=== PATIENT | female | born 1965 | race Caucasian/White ===

== ENCOUNTER → 2016-10-05 | Outpatient (CLI) | payer SELFPAY ==
--- NOTE | 2016-10-05 11:46 | RADIOLOGY REPORT (SQ) ---
EXAM DESCRIPTION: FOOT LEFT COMPLETE COMPLETED DATE/TIME: 10/05/2016 10:37 am REASON FOR STUDY: TOE PAIN M79.676 PAIN IN UNSPECIFIED TOE(S) COMPARISON: None. NUMBER OF VIEWS: Three views. TECHNIQUE: AP, lateral and oblique radiographic images acquired of the left foot. LIMITATIONS: None. FINDINGS: MINERALIZATION: Normal. BONES: There is a plantar calcaneal spur. There is no acute osseous abnormality. JOINTS: No effusions. SOFT TISSUES: No soft tissue swelling. No foreign body. OTHER: No other significant finding. IMPRESSION: Calcaneal spur with no acute abnormality. TECHNICAL DOCUMENTATION: JOB ID: [id number] [employer]- All Rights Reserved
== END ==
LOC: RAD 10:19
PROVIDERS: ATTEND Student in an Organized Health Care Education/Training Program
DX: M79.675 Pain in left toe(s) (principal); M77.32 Calcaneal spur, left foot

== ENCOUNTER → 2016-10-08 | Outpatient (CLI) | payer SELFPAY ==
--- NOTE | 2016-10-08 13:04 | XCELERA REPORT ---
[address] [address] Lower Extremity Arterial Evaluation Name: OBI DELCID Age: 50 yrs Gender: Female : 1965 Patient Status: Outpatient Patient Location: Study Date: 10/08/2016 10:52 AM Procedure: A color flow and duplex scan of the lower extremity arteries was performed bilaterally with velocity and waveform anaylsis. Reason For Study: EDEMA Ordering Physician: JULIA ROBISON Performed By: Radha Patrick Measurements and Calculations Right Left Prox PFA PSV 142.8 77.9 cm/sec Prox SFA PSV 67.8 68.4 cm/sec Mid SFA PSV 64.2 75.1 cm/sec Dist SFA PSV 52.0 48.4 cm/sec Dist Pop A PSV 46.2 62.4 cm/sec Dist MARTY PSV 39.3 63.8 cm/sec Dist GROCERY SPECIALIST PSV 28.2 18.6 cm/sec Right Side Arterial Evaluation Normal velocity and triphasic waveforms noted in the Common Femoral artery. Biphasic with fairly well preserved velocity to the Posterior Tibial artery. Monophasic in the Anterior Tibial artery. 20-49 % stenosis at the Femoral artery. With sequential disease. Ankle Brachial index was not done. Left Side Arterial Evaluation Normal velocity and triphasic waveforms noted in the deep Femoral artery. Biphasic with fairly well preserved velocity in the Common Femoral . Monophasic from the Popliteal to the Infrageniculate vessels. Moderately dampened waveforms, with moderate spectral broadening. 20-49 % stenosis at the Aorta Iliac. With sequential disease. Ankle Brachial index was not done. Critical Findings Called [phone] at 1254. Interpretation Summary Moderate hemodynamically significant lesions in the right lower extremity only, on duplex imaging, at rest. Severe hemodynamically significant lesions in the bilateral lower extremities, on duplex imaging, at rest. : JULIA ROBISON > Sai Gimenez
--- NOTE | 2016-10-08 13:06 | XCELERA REPORT ---
[address] [address] Lower Extremity Venous Evaluation Name: OBI DELCID Age: 50 yrs Gender: Female : 1965 Patient Status: Outpatient Patient Location: Study Date: 10/08/2016 10:31 AM Procedure: Color flow and duplex imaging bilaterally of the veins of the lower extremities as well as the Common Femoral veins. Reason For Study: PAD Ordering Physician: JULIA ROBISON Performed By: Radha Patrick Right Sided Venous Evaluation Normal vessel filling wall to wall, compression and augmentation as well as Colour flow down to the infrageniculate veins. Left Sided Venous Evaluation Normal vessel filling wall to wall, compression and augmentation as well as Colour flow down to the infrageniculate veins. Critical Findings Called [phone] at 1256. Interpretation Summary No duplex evidence of DVT or obstruction in the bilateral lower extremities. : JULIA ROBISON > Sai Gimenez
== END ==
LOC: SP 10:01
PROVIDERS: ATTEND Student in an Organized Health Care Education/Training Program
DX: R60.9 Edema, unspecified (principal)
CPT/HCPCS: 93925; 93970

== ENCOUNTER 2016-10-16 06:38 | Emergency (ER) | payer SELFPAY ==
--- NOTE | 2016-10-16 07:30 | RADIOLOGY REPORT (SQ) ---
EXAM DESCRIPTION: CT HEAD WITHOUT COMPLETED DATE/TIME: 10/16/2016 7:17 am REASON FOR STUDY: numbness right side of head, face, shoulder and ear COMPARISON: None. TECHNIQUE: Axial images acquired through the brain without intravenous contrast. Images reviewed wi th bone, brain and subdural windows. Images stored on PACS. All CT scanners at this facility use dose modulation, iterative reconstruction, and/or weight based d osing when appropriate to reduce radiation dose to as low as reasonably achievable (ALARA). [facility]: Dose Right [facility]: CareDose [facility]: Dose Right [facility]: Teradose 4D [facility]: [email or web address] RADIATION DOSE: Up-to-date CT equipment and radiation dose reduction techniques were employed. CTDIv ol: 64.6 mGy. DLP: 1163 mGy-cm. mGy. LIMITATIONS: None. FINDINGS: VENTRICLES: Normal size and contour. CEREBRUM: No masses. No hemorrhage. No midline shift. Normal bryan/white matter differentiation. N o evidence for acute infarction. CEREBELLUM: No masses. No hemorrhage. No alteration of density. No evidence for acute infarction. EXTRAAXIAL SPACES: No fluid collections. No masses. ORBITS AND GLOBE: No intra- or extraconal masses. Normal contour of globe without masses. CALVARIUM: No fracture. PARANASAL SINUSES: Soft tissue occlusion with high attenuation components of the right maxillary sinu s. Mild asymmetric mucosal prominence of the right eustachian tube. SOFT TISSUES: No mass or hematoma. OTHER: No other significant finding. IMPRESSION: Chronic right maxillary sinusitis with fungal superinfection pattern. No acute intracra nial findings. TECHNICAL DOCUMENTATION: JOB ID: [id number] Quality ID # [id number]: Final reports with documentation of one or more dose reduction techniques (e.g., Au tomated exposure control, adjustment of the mA and/or kV according to patient size, use of iterative reconstruction technique) 2010 [employer]- All Rights Reserved
[2016-10-16] MEDS ORDERED: DOCUSATE SODIUM 100 MG CAPSULE RT_EAR ONE (07:37)
--- NOTE | 2016-10-16 07:43 | ER Document Report ---
ED ENT - General Mode of Arrival: Ambulatory Information source: Patient TRAVEL OUTSIDE OF THE [place] IN LAST 30 DAYS: No - HPI Patient complains to provider of: Ear problem Associated symptoms: Other - See above <EUGENIE ZIEGLER - Last Filed: 10/16/16 07:51> <ADITYA ANGLIN - Last Filed: 10/16/16 08:34> - General Chief Complaint: Ear Pain Stated Complaint: ear pain Notes: Patient is a 50 year old female, with a past medical history including CAD and diabetes, who presents to the emergency department complaining of right ear pain onset 2 weeks ago and worsening. Patient also complains of headache, pain in her right jaw, right shoulder, and right neck, as well as numbness in top of her head radiating down the right side and when pressed patient reports feeling shooting pain like needles. Patient states she told her PCP of the ear pain but nothing was done, she received a left femoral artery stent 6 days ago. Patient was placed on Plavix after the surgery and is still on it. Patient reports she took Amoxicillin for the ear pain because she thought it may be an infection, with no relief. (EUGENIE ZIEGLER) - Related Data Allergies/Adverse Reactions: iodine [Iodine] Allergy (Verified 01/12/16 13:01) swollen Past Medical History - General Information source: Patient - Social History Smoking Status: Current Every Day Smoker Chew tobacco use (# tins/day): - 45 Frequency of alcohol use: None Drug Abuse: None Family History: Reviewed & Not Pertinent Patient has suicidal ideation: No Patient has homicidal ideation: No - Past Medical History Cardiac Medical History: Reports: Hx Coronary Artery Disease, Hx Heart Attack - 2008, Hx Hypercholesterolemia, Hx Hypertension Endocrine Medical History: Reports: Hx Diabetes Mellitus Type 2 Musculoskeltal Medical History: Reports Hx Musculoskeletal Deformity, Reports Hx Musculoskeletal Trauma Psychiatric Medical History: Reports: Hx Attention Deficit Hyperactivity Disorder, Hx Bipolar Disorder Past Surgical History: Reports: Hx Cardiac Catheterization, Hx Coronary Stent, Hx Hysterectomy, Hx Tonsillectomy - Immunizations Immunizations up to date: Yes Hx Diphtheria, Pertussis, Tetanus Vaccination: Yes <EUGENIE ZIEGLER - Last Filed: 10/16/16 07:51> Review of Systems - Review of Systems Constitutional: No symptoms reported EENT: See HPI, Ear pain Cardiovascular: No symptoms reported Respiratory: No symptoms reported Gastrointestinal: No symptoms reported Genitourinary: No symptoms reported Female Genitourinary: No symptoms reported Musculoskeletal: See HPI, Joint pain - shoulder, Neck pain Skin: No symptoms reported Hematologic/Lymphatic: No symptoms reported Neurological/Psychological: See HPI, Headaches, Numbness -: Yes All other systems reviewed and negative <EUGENIE ZIEGLER - Last Filed: 10/16/16 07:51> Physical Exam - Vital signs Interpretation: Normal - General General appearance: Appears well, Alert - HEENT Head: Tenderness - Tenerness to palpation at top of head. Ears: Tragus tenderness, Other - preauricular tenderness to palpation External canal: Other - Dark brown shiny wax blocking most of canal Mouth/Lips: Other - Right upper molars decayed, not tender to percussion Neck: No: Lymphadenopathy - Respiratory Respiratory status: No respiratory distress Chest status: Nontender Breath sounds: Rales, Rhonchi Chest palpation: Normal - Cardiovascular Rhythm: Regular Heart sounds: Normal auscultation Murmur: No - Back Back: Normal, Nontender - Extremities General upper extremity: Normal inspection General lower extremity: Normal inspection - Neurological Neuro grossly intact: Yes Cognition: Normal Orientation: AAOx4 [place] Coma Scale Eye Opening: Spontaneous [place] Coma Scale Verbal: Oriented [place] Coma Scale Motor: Obeys Commands Kaelyn Coma Scale Total: 15 Speech: Normal - Psychological Associated symptoms: Normal affect, Normal mood - Skin Skin Temperature: Warm Skin Moisture: Dry Skin Color: Normal <EUGENIE ZIEGLER - Last Filed: 10/16/16 07:51> Course <EUGENIE ZIEGLER - Last Filed: 10/16/16 07:51> - Laboratory Result Diagrams: 10/16/16 07:55 10/16/16 07:55 - Diagnostic Test Radiology reviewed: Image reviewed, Reports reviewed - CT scan shows opacified right maxillary sinus with characteristics suggestive of fungal infection <ADITYA ANGLIN - Last Filed: 10/16/16 08:34> - Re-evaluation Re-evalutation: 10/16/16 08:26 After the erection patient was removed from the right ear canal, there appears to be a small little white head or pimple-like projection off the anterior wall of the canal. This area is quite tender. (ADITYA ANGLIN) - Vital Signs Vital signs: Temp Pulse Resp BP Pulse Ox 98.1 F 108 H 20 180/99 H 98 10/16/16 06:51 10/16/16 06:51 10/16/16 06:51 10/16/16 06:51 10/16/16 06:51 - Laboratory Laboratory results interpreted by me: 10/16/16 10/16/16 07:55 07:55 WBC 14.8 H Absolute Lymphocytes 5.9 H Glucose 234 H Alkaline Phosphatase 132 H Discharge <EUGENIE ZIEGLER - Last Filed: 10/16/16 07:51> <ADITYA ANGLIN - Last Filed: 10/16/16 08:34> - Discharge Clinical Impression: Right external ear canal pimple, Right maxillary sinusitis, chronic Condition: Stable Disposition: HOME, SELF-CARE Additional Instructions: Your right ear pain appears to be coming from a pimple-like lesion on the anterior wall of the external ear canal. Place 3-4 drops into the right ear canal and place a week, 4 times daily. Take the medications as prescribed. Call [facility] to schedule an appointment in the next few days to evaluate your ear and your maxillary sinus. Prescriptions: Ciprofloxacin HCl [Cipro 500 mg Tablet] 500 mg PO BID #14 tablet Oxycodone HCl/Acetaminophen [Percocet 5-325 mg Tablet] 1 - 2 tab PO ASDIR PRN # 15 tablet PRN Reason: Referrals: JULIA ROBISON DO [Primary Care Provider] - [facility] as [facility]] - Follow up in 3-5 days Scribe Attestation: 10/16/16 08:34 I personally performed the services described in the documentation, reviewed and edited the documentation which was dictated to the scribe in my presence, and it accurately records my words and actions. (ADITYA ANGLIN) Scribe Documentation - Scribe Written by Magnolia:: magnolia Reyes, 10/14/16, 0750 acting as scribe for :: Supriya <EUGENIE ZIEGLER - Last Filed: 10/16/16 07:51>
[2016-10-16 08:02] LABS: ABSOLUTE BASOPHILS # (AUTO) 0.1 10^3/uL (0.0-0.2); ABSOLUTE EOSINOPHILS # (AUTO) 0.2 10^3/uL (0.0-0.6); ABSOLUTE LYMPHOCYTES (AUTO) 5.9 10^3/uL (0.5-4.7); ABSOLUTE NEUT (AUTO) 7.7 10^3/uL (1.7-8.2); BASOPHILS % (AUTO) 0.5 % (0-2); EOSINOPHILS % (AUTO) 1.5 % (0-6); HEMATOCRIT 41.4 % (36.0-47.0); HEMOGLOBIN 13.7 g/dL (12.0-15.5); HGB HCT DIFFERENCE -0.3; LYMPHOCYTES % (AUTO) 39.7 % (13-45); MEAN CORPUSCULAR HEMOGLOBIN 29.8 pg (27.0-33.4); MEAN CORPUSCULAR HGB CONC 33.2 g/dL (32.0-36.0); MEAN CORPUSCULAR VOLUME 90 fl (80-97); MONOCYTES % (AUTO) 6.5 % (3-13); RED BLOOD COUNT 4.61 10^6/uL (3.72-5.28); RED CELL DISTRIBUTION WIDTH 13.1 % (11.5-14.0); SEGMENTED NEUTROPHILS % (AUTO) 51.8 % (42-78); WHITE BLOOD COUNT 14.8 10^3/uL (4.0-10.5)
[2016-10-16 08:16] LABS: ALANINE AMINOTRANSFERASE 36 U/L (9-52); ALBUMIN 3.9 g/dL (3.5-5.0); ALKALINE PHOSPHATASE 132 U/L (38-126); ANION GAP 11 (5-19); ASPARTATE AMINO TRANSFERASE 21 U/L (14-36); BILIRUBIN,DIRECT 0.3 mg/dL (0.0-0.4); BILIRUBIN,TOTAL 0.5 mg/dL (0.2-1.3); BLOOD UREA NITROGEN 7 mg/dL (7-20); CALCIUM 9.3 mg/dL (8.4-10.2); CARBON DIOXIDE 24 mmol/L (22-30); CHLORIDE 106 mmol/L (98-107); CREATININE RESULT 0.57 mg/dL (0.52-1.25); GLUCOSE 234 mg/dL (75-110); SODIUM 141.4 mmol/L (137-145)
[2016-10-16] MEDS ORDERED: NEOMY SULF/POLYMYX B SULF/HC OTIC SUSP 10 ML AD ONE (08:17)
[2016-10-16] MEDS ORDERED: OXYCODONE-ACETAMINOPHEN 5-325 MG TABLET PO ONE (08:18)
[2016-10-16 08:41] VITALS: BP 157/91
== END 2016-10-16 08:41 | disposition home or self-care (01) ==
LOC: ER 06:38
DX: H92.01 Otalgia, right ear (principal); R23.8 Other skin changes; J32.0 Chronic maxillary sinusitis; R51 Headache; R68.84 Jaw pain; M54.2 Cervicalgia; M25.511 Pain in right shoulder; E11.9 Type 2 diabetes mellitus without complications; I25.10 Atherosclerotic heart disease of native coronary artery without angina pectoris; F17.220 Nicotine dependence, chewing tobacco, uncomplicated; Z90.710 Acquired absence of both cervix and uterus
CPT/HCPCS: 99284; 36415; 85025; 80053; 70450; J3490

== ENCOUNTER 2016-11-06 14:34 | Emergency (ER) | payer SELFPAY ==
--- NOTE | 2016-11-06 14:59 | ER Document Report ---
ED Medical Screen (RME) - General Chief Complaint: Numbness Stated Complaint: HEAD NUMBNESS, RIGHT BODY NUMBNESS Time Seen by Provider: 11/06/16 14:57 Mode of Arrival: Ambulatory Information source: Patient TRAVEL OUTSIDE OF THE [place] IN LAST 30 DAYS: No - HPI Patient complains to provider of: SHERMAN, numbness of face, R arm Onset: Other - Pt with several week h/o intermittent SHERMAN with numbness to R side of head and R arm. Denies h/o trauma - Related Data Allergies/Adverse Reactions: iodine [Iodine] Allergy (Verified 01/12/16 13:01) swollen Past Medical History - Past Medical History Cardiac Medical History: Reports: Hx Coronary Artery Disease, Hx Heart Attack - 2008, Hx Hypercholesterolemia, Hx Hypertension Pulmonary Medical History: Denies: Hx Asthma Neurological Medical History: Denies: Hx Cerebrovascular Accident, Hx Seizures Endocrine Medical History: Reports: Hx Diabetes Mellitus Type 2 Renal/ Medical History: Denies: Hx Peritoneal Dialysis GI Medical History: Denies: Hx Hepatitis, Hx Hiatal Hernia, Hx Ulcer Musculoskeltal Medical History: Reports Hx Musculoskeletal Deformity, Reports Hx Musculoskeletal Trauma Psychiatric Medical History: Reports: Hx Attention Deficit Hyperactivity Disorder, Hx Bipolar Disorder Infectious Medical History: Denies: Hx Hepatitis Past Surgical History: Reports: Hx Cardiac Catheterization, Hx Coronary Stent, Hx Hysterectomy, Hx Tonsillectomy. Denies: Hx Mastectomy, Hx Open Heart Surgery , Hx Pacemaker - Immunizations Immunizations up to date: Yes Hx Diphtheria, Pertussis, Tetanus Vaccination: Yes Physical Exam - Vital signs Vitals: Temp Pulse Resp BP Pulse Ox 98.3 F 105 H 20 140/78 H 96 11/06/16 14:40 11/06/16 14:40 11/06/16 14:40 11/06/16 14:40 11/06/16 14:40 Course - Vital Signs Vital signs: Temp Pulse Resp BP Pulse Ox 98.3 F 105 H 20 140/78 H 96 11/06/16 14:40 11/06/16 14:40 11/06/16 14:40 11/06/16 14:40 11/06/16 14:40
[2016-11-06 15:15] LABS: ABSOLUTE BASOPHILS # (AUTO) 0.1 10^3/uL (0.0-0.2); ABSOLUTE EOSINOPHILS # (AUTO) 0.4 10^3/uL (0.0-0.6); ABSOLUTE LYMPHOCYTES (AUTO) 5.5 10^3/uL (0.5-4.7); ABSOLUTE MONOCYTES (AUTO) 0.6 10^3/uL (0.1-1.4); ABSOLUTE NEUT (AUTO) 10.6 10^3/uL (1.7-8.2); BASOPHILS % (AUTO) 0.4 % (0-2); EOSINOPHILS % (AUTO) 2.5 % (0-6); HEMATOCRIT 44.8 % (36.0-47.0); HEMOGLOBIN 15.2 g/dL (12.0-15.5); HGB HCT DIFFERENCE 0.8; LYMPHOCYTES % (AUTO) 31.7 % (13-45); MEAN CORPUSCULAR HEMOGLOBIN 30.5 pg (27.0-33.4); MEAN CORPUSCULAR HGB CONC 33.9 g/dL (32.0-36.0); MEAN CORPUSCULAR VOLUME 90 fl (80-97); MONOCYTES % (AUTO) 3.7 % (3-13); RED BLOOD COUNT 4.98 10^6/uL (3.72-5.28); SEGMENTED NEUTROPHILS % (AUTO) 61.7 % (42-78); WHITE BLOOD COUNT 17.3 10^3/uL (4.0-10.5)
[2016-11-06 15:30] LABS: ALANINE AMINOTRANSFERASE 46 U/L (9-52); ALBUMIN 4.2 g/dL (3.5-5.0); ALKALINE PHOSPHATASE 136 U/L (38-126); ANION GAP 15 (5-19); ASPARTATE AMINO TRANSFERASE 34 U/L (14-36); BILIRUBIN,DIRECT 0.4 mg/dL (0.0-0.4); BILIRUBIN,TOTAL 0.6 mg/dL (0.2-1.3); BLOOD UREA NITROGEN 14 mg/dL (7-20); CALCIUM 10.1 mg/dL (8.4-10.2); CARBON DIOXIDE 22 mmol/L (22-30); CHLORIDE 102 mmol/L (98-107); CREATINE KINASE 33 U/L (30-135); CREATININE RESULT 0.75 mg/dL (0.52-1.25); GLUCOSE 263 mg/dL (75-110); POTASSIUM 4.2 mmol/L (3.6-5.0); SODIUM 139.4 mmol/L (137-145); TOTAL PROTEIN 7.6 g/dL (6.3-8.2)
--- NOTE | 2016-11-06 15:31 | RADIOLOGY REPORT (SQ) ---
EXAM DESCRIPTION: CT HEAD WITHOUT COMPLETED DATE/TIME: 11/06/2016 3:18 pm REASON FOR STUDY: SHERMAN, numbness COMPARISON: 10/16/2016 TECHNIQUE: Axial images acquired through the brain without intravenous contrast. Images reviewed wi th bone, brain and subdural windows. Images stored on PACS. All CT scanners at this facility use dose modulation, iterative reconstruction, and/or weight based d osing when appropriate to reduce radiation dose to as low as reasonably achievable (ALARA). [facility]: Dose Right [facility]: CareDose [facility]: Dose Right [facility]: Teradose 4D [facility]: Smart [address] [address] RADIATION DOSE: Up-to-date CT equipment and radiation dose reduction techniques were employed. CTDIv ol: 63.0 mGy. DLP: 1163 mGy-cm. mGy. LIMITATIONS: None. FINDINGS: VENTRICLES: Normal size and contour. CEREBRUM: No masses. No hemorrhage. No midline shift. Normal bryan/white matter differentiation. N o evidence for acute infarction. CEREBELLUM: No masses. No hemorrhage. No alteration of density. No evidence for acute infarction. EXTRAAXIAL SPACES: No fluid collections. No masses. ORBITS AND GLOBE: No intra- or extraconal masses. Normal contour of globe without masses. CALVARIUM: No fracture. PARANASAL SINUSES: There is persistent opacification and expansion of the right maxillary sinus. A s mall mucous retention cyst is seen in the left maxillary sinus. SOFT TISSUES: No mass or hematoma. OTHER: No other significant finding. IMPRESSION: Persistent maxillary sinus disease with no acute intracranial pathology. TECHNICAL DOCUMENTATION: JOB ID: [id number] Quality ID # [id number]: Final reports with documentation of one or more dose reduction techniques (e.g., Au tomated exposure control, adjustment of the mA and/or kV according to patient size, use of iterative reconstruction technique) 2010 [employer]- All Rights Reserved
--- NOTE | 2016-11-06 15:35 | RADIOLOGY REPORT (SQ) ---
EXAM DESCRIPTION: CT CERVICAL SPINE WITHOUT COMPLETED DATE/TIME: 11/06/2016 3:18 pm REASON FOR STUDY: SHERMAN, numbness COMPARISON: None. TECHNIQUE: Axial images acquired through the cervical spine without intravenous contrast. Images re viewed with lung, soft tissue and bone windows. Reconstructed coronal and sagittal MPR images review ed. Images stored on PACS. All CT scanners at this facility use dose modulation, iterative reconstruction, and/or weight based d osing when appropriate to reduce radiation dose to as low as reasonably achievable (ALARA). [facility]: Dose Right [facility]: CareDose [facility]: Dose Right [facility]: Teradose 4D [facility]: Smart [employer] RADIATION DOSE: Up-to-date CT equipment and radiation dose reduction techniques were employed. CTDIv ol: 21.4 mGy. DLP: 478 mGy-cm. mGy. LIMITATIONS: None. FINDINGS: ALIGNMENT: Anatomic. MINERALIZATION: Normal. VERTEBRAL BODIES: No fractures or dislocation. DISCS: No significant disc disease. FACETS, LATERAL MASSES, POSTERIOR ELEMENTS: No fractures. No dislocation. No acute findings. HARDWARE: None in the spine. VISUALIZED RIBS: No fractures. LUNG APICES AND SOFT TISSUES: No significant or acute findings. OTHER: No other significant finding. IMPRESSION: NO ACUTE OR SIGNIFICANT FINDINGS IN THE CERVICAL SPINE. TECHNICAL DOCUMENTATION: JOB ID: [id number] Quality ID # [id number]: Final reports with documentation of one or more dose reduction techniques (e.g., Au tomated exposure control, adjustment of the mA and/or kV according to patient size, use of iterative reconstruction technique) 2010 [employer] All Rights Reserved
[2016-11-06 15:40] LABS: CREATINE KINASE MB 0.38 ng/mL (<4.55)
[2016-11-06 15:42] LABS: TROPONIN I < 0.012 ng/mL
--- NOTE | 2016-11-06 15:47 | ER Document Report ---
ED Neuro Symptoms/Deficit - General Chief Complaint: Numbness Stated Complaint: HEAD NUMBNESS, RIGHT BODY NUMBNESS Time Seen by Provider: 11/06/16 14:57 Mode of Arrival: Ambulatory Notes: The patient is a 51-year-old female, past medical history hypertension, CAD s/p 2 stents, maxillary sinus disease, diabetes, presents with 3 weeks of intermittent shooting pains on the right side of her head, right shoulder and right arm. When she has these pains, her arm feels numb. She says that air conditioning makes the pain worse. She saw an ENT physician and her primary care physician this week. She tried lidocaine patches, NSAIDs or heating pads without much relief of her symptoms. TRAVEL OUTSIDE OF THE [place] IN LAST 30 DAYS: No - Related Data Allergies/Adverse Reactions: iodine [Iodine] Allergy (Verified 11/06/16 16:11) swollen Past Medical History - General Information source: Patient - Social History Smoking Status: Current Every Day Smoker Chew tobacco use (# tins/day): No Frequency of alcohol use: None Drug Abuse: None Family History: Reviewed & Not Pertinent Patient has suicidal ideation: No Patient has homicidal ideation: No - Past Medical History Cardiac Medical History: Reports: Hx Coronary Artery Disease, Hx Heart Attack - 2008, Hx Hypercholesterolemia, Hx Hypertension Pulmonary Medical History: Denies: Hx Asthma Neurological Medical History: Denies: Hx Cerebrovascular Accident, Hx Seizures Endocrine Medical History: Reports: Hx Diabetes Mellitus Type 2 Renal/ Medical History: Denies: Hx Peritoneal Dialysis GI Medical History: Denies: Hx Hepatitis, Hx Hiatal Hernia, Hx Ulcer Musculoskeltal Medical History: Reports Hx Musculoskeletal Deformity, Reports Hx Musculoskeletal Trauma Psychiatric Medical History: Reports: Hx Attention Deficit Hyperactivity Disorder, Hx Bipolar Disorder Infectious Medical History: Denies: Hx Hepatitis Past Surgical History: Reports: Hx Cardiac Catheterization, Hx Coronary Stent, Hx Hysterectomy, Hx Tonsillectomy. Denies: Hx Mastectomy, Hx Open Heart Surgery , Hx Pacemaker - Immunizations Immunizations up to date: Yes Hx Diphtheria, Pertussis, Tetanus Vaccination: Yes Review of Systems - Review of Systems Notes: REVIEW OF SYSTEMS: CONSTITUTIONAL: -fevers, -chills EENT: -eye pain, -difficulty swallowing, -nasal congestion CARDIOVASCULAR:-chest pain, -syncope. RESPIRATORY: -cough, -SOB GASTROINTESTINAL: -abdominal pain, - nausea, -vomiting, -diarrhea GENITOURINARY: -dysuria, -hematuria MUSCULOSKELETAL: -back pain, +neck pain SKIN: -rash or skin lesions. HEMATOLOGIC: -easy bruising or bleeding. LYMPHATIC: -swollen, enlarged glands. NEUROLOGICAL: -altered mental status or loss of consciousness, -headache, + numbness/tingling on right side of head and arm PSYCHIATRIC: -anxiety, -depression. ALL OTHER SYSTEMS REVIEWED AND NEGATIVE. Physical Exam - Vital signs Vitals: Temp Pulse Resp BP Pulse Ox 98.3 F 105 H 20 140/78 H 96 11/06/16 14:40 11/06/16 14:40 11/06/16 14:40 11/06/16 14:40 11/06/16 14:40 - Notes Notes: PHYSICAL EXAMINATION: GENERAL: Well-appearing, well-nourished and in no acute distress. HEAD: Atraumatic, normocephalic. EYES: Pupils equal round and reactive to light, extraocular movements intact, sclera anicteric, conjunctiva are normal. ENT: nares patent, oropharynx clear without exudates. Moist mucous membranes. NECK: Normal range of motion, supple without lymphadenopathy LUNGS: Breath sounds clear to auscultation bilaterally and equal. No wheezes rales or rhonchi. HEART: Regular rate and rhythm without murmurs ABDOMEN: Soft, nontender, normoactive bowel sounds. No guarding, no rebound. No masses appreciated. EXTREMITIES: Normal range of motion, no pitting or edema. No cyanosis. Strong distal pulses. NEUROLOGICAL: Tingling of right side of head, right shoulder and right arm. Cranial nerves grossly intact. Normal speech, normal gait. Normal motor exams. PSYCH: Normal mood, normal affect. SKIN: Warm, Dry, normal turgor, no rashes or lesions noted. Course - Re-evaluation Re-evalutation: Patient appears well. Her head CT and C-spine CT did not show any acute abnormalities. Considered CVA, but symptoms are more indicative of a radiculopathy with worsening tingling with movement of her neck and shoulders. Patient has a 32 ounce cup of soda in her room. Instructed her that with her diabetes, this is probably not a good idea. Labs are unremarkable, other than the hyperglycemia and leukocytosis. No signs of infection at this time and no fever to explain the leukocytosis. This may be reactive. Instructed patient that she must follow-up with her primary care physician tomorrow for further evaluation and treatment. Given strict return precautions and she understands. - Vital Signs Vital signs: Temp Pulse Resp BP Pulse Ox 98.3 F 99 18 138/88 H 98 11/06/16 14:40 11/06/16 17:06 11/06/16 17:06 11/06/16 17:06 11/06/16 17:06 - Laboratory Result Diagrams: 11/06/16 15:00 11/06/16 15:00 Laboratory results interpreted by me: 11/06/16 11/06/16 15:00 15:00 WBC 17.3 H Absolute Neutrophils 10.6 H Absolute Lymphocytes 5.5 H Glucose 263 H Alkaline Phosphatase 136 H - Diagnostic Test Radiology reviewed: Image reviewed, Reports reviewed Radiology results interpreted by me: CT Head/C-spine: NAD - EKG Interpretation by Me EKG shows normal: Sinus rhythm, Newberg, Intervals, QRS Complexes, ST-T Waves Discharge - Discharge Clinical Impression: Radicular neuropathy Condition: Stable Disposition: HOME, SELF-CARE Additional Instructions: Radiculopathy Radiculopathy is irritation of a nerve. Sometimes this is called "pinched nerve." The pain can be sharp and stabbing, constant and dull, or burning in nature. The pain can occur in any area of the chest, shoulders, or arms. Sometimes the pain is provoked by coughing or moving. Radiculopathy can be caused by physical pressure on a nerve, such as a herniated disc or swollen joint in the spine. It can also be caused by viral infections within the nerve or by nerve damage due to diabetes or blood vessel disease. Radicular pain is treated with antiinflammatory medicine. Injections may help resistant cases, if we can identify a single nerve that's causing the pain. Surgery is usually not necessary. If symptoms do not improve with time, you may need additional testing, such as an MRI or EMG (electromyogram). Return if there is local weakness or numbness, shortness of breath, increasing pain, or other new symptoms. Neuropathy Your symptoms are due to neuropathy. Neuropathy is nerve damage. There are many causes, including diabetes, immune disease, alcohol, blood vessel disease, and vitamin deficiency. The usual symptoms are pain and numbness. Neuropathy can occur anywhere, but it's most likely in the "longest" nerves. That's why the feet are most often affected. Sometimes the nerve damage can heal. But if the symptoms have lasted more than a few months, the damage is permanent. To avoid further damage, treat your underlying health problems carefully. If you have diabetes, keep the blood sugar as normal as possible. Avoid alcohol. Treat high blood pressure and high cholesterol. Treating chronic pain can be a problem. Obviously, you don't want to become addicted to pain medicine. Work closely with your doctor on pain management. Your options include antiinflammatory medicine, anti seizure medicine, antidepressants, and pain clinic management. Contact the doctor if there is a significant change. Prescriptions: Gabapentin [Neurontin 100 mg Capsule] 100 mg PO Q12 #14 capsule Hydrocodone/Acetaminophen [Breda 5-325 mg Tablet] 1 tab PO Q6H PRN #10 tablet PRN Reason: Referrals: JULIA ROBISON DO [Primary Care Provider] - Follow up as needed OLGA LIDIA SMITH MD [ACTIVE STAFF] - Follow up as needed
[2016-11-06 17:08] VITALS: BP 138/88
--- NOTE | 2016-11-06 20:18 | EKG REPORT ---
SEVERITY:- BORDERLINE ECG - SINUS RHYTHM BORDERLINE T ABNORMALITIES, ANT-LAT LEADS BORDERLINE PROLONGED QT INTERVAL : Confirmed by: Gerard Romero MD 06-Nov-2016 20:17:56
== END 2016-11-06 17:06 | disposition home or self-care (01) ==
LOC: ER 14:34
DX: M54.10 Radiculopathy, site unspecified (principal); M25.511 Pain in right shoulder; M79.601 Pain in right arm; R20.0 Anesthesia of skin; F17.200 Nicotine dependence, unspecified, uncomplicated; I10 Essential (primary) hypertension; I25.10 Atherosclerotic heart disease of native coronary artery without angina pectoris; E78.00 Pure hypercholesterolemia, unspecified; E11.9 Type 2 diabetes mellitus without complications; I25.2 Old myocardial infarction; Z90.710 Acquired absence of both cervix and uterus
CPT/HCPCS: 36415; 70450; 72125; 80053; 82550; 82553; 84484; 85025; 93005; 93010; 99284

== ENCOUNTER → 2016-11-20 | Outpatient (CLI) | payer SELFPAY ==
--- NOTE | 2016-11-21 16:57 | XCELERA REPORT ---
[address] [address] Upper Extremity Arterial Evaluation Name: OBI DELCID Age: 51 yrs Gender: Female : 1965 Patient Status: Outpatient Patient Location: Study Date: 11/20/2016 12:19 PM Procedure: A duplex scan of the upper extremity arteries was performed on the right. Reason For Study: RUE PAIN, NUMBNESS Ordering Physician: JULIA ROBISON Performed By: Bianka Iyer Measurements and Calculations Right Left Prox SCLA PSV -113.6 cm/sec Ax A PSV 86.6 cm/sec Prox Brach A PSV 94.8 cm/sec Dist Brach A PSV 94.8 cm/sec Prox Rad A PSV -71.9 cm/sec Dist Rad A PSV 88.8 cm/sec Prox Ulnar A PSV 35.4 cm/sec Dist Ulnar A PSV 82.9 cm/sec Ax A PSV 86.6 cm/sec Dist Brach A PSV 94.8 cm/sec Dist Rad A PSV 88.8 cm/sec Dist Ulnar A PSV 82.9 cm/sec Prox Brach A PSV 94.8 cm/sec Prox Rad A PSV -71.9 cm/sec Prox Ulnar A PSV 35.4 cm/sec Right Side Arterial Evaluation Normal velocity and triphasic waveforms noted from the Common Femoral artery to the foreartm vessels. 0 % stenosis noted. Interpretation Summary No hemodynamically significant lesions in the right upper extremity only, on duplex imaging, at rest. : JULIA ROBISON, Sai >
== END ==
LOC: SP 12:05
PROVIDERS: ATTEND Student in an Organized Health Care Education/Training Program
DX: I74.2 Embolism and thrombosis of arteries of the upper extremities (principal); R20.0 Anesthesia of skin
CPT/HCPCS: 93931

== ENCOUNTER 2018-03-07 02:35 | Emergency (ER) | payer SELFPAY ==
[2018-03-07] MEDS ORDERED: IPRATROPIUM/ALBUTEROL 0.5-2.5 MG/3 ML AMPUL NEB ONE ×2 (03:36→04:41)
--- NOTE | 2018-03-07 03:44 | ER Document Report ---
ED General - General Chief Complaint: Painful Cough Stated Complaint: SHORT OF BREATH, COUGH, CONGESTION Time Seen by Provider: 03/07/18 03:34 Notes: Patient is a 52-year-old female who presents emergency department with a cough and shortness of breath. She states that it is hard to breathe and coughing hurts her chest. She has been having fevers. Denies nausea at this moment, but has vomited the other day. She said this started 3 days ago and she has been coughing up thick mucus which is slightly blood-tinged. She has been having diarrhea, a little more than normal, but she states that her diarrhea is chronic. She is a current every day smoker. denies alcohol and drug abuse. She has history of diabetes and hypertension. TRAVEL OUTSIDE OF THE [place] IN LAST 30 DAYS: No - Related Data Allergies/Adverse Reactions: iodine [Iodine] Allergy (Verified 01/03/18 18:06) swollen Past Medical History - Social History Smoking Status: Current Every Day Smoker Smoking Education Provided: Yes - > 4 min Frequency of alcohol use: None Drug Abuse: None Family History: Reviewed & Not Pertinent - Past Medical History Cardiac Medical History: Reports: Hx Coronary Artery Disease, Hx Heart Attack - 2008, Hx Hypercholesterolemia, Hx Hypertension Pulmonary Medical History: Denies: Hx Asthma Neurological Medical History: Denies: Hx Cerebrovascular Accident, Hx Seizures Endocrine Medical History: Reports: Hx Diabetes Mellitus Type 2 Renal/ Medical History: Denies: Hx Peritoneal Dialysis GI Medical History: Denies: Hx Hepatitis, Hx Hiatal Hernia, Hx Ulcer Musculoskeletal Medical History: Reports Hx Musculoskeletal Deformity, Reports Hx Musculoskeletal Trauma Psychiatric Medical History: Reports: Hx Attention Deficit Hyperactivity Disorder, Hx Bipolar Disorder Infectious Medical History: Denies: Hx Hepatitis Past Surgical History: Reports: Hx Cardiac Catheterization - stent x 2, Hx Coronary Stent, Hx Hysterectomy, Hx Tonsillectomy. Denies: Hx Mastectomy, Hx Open Heart Surgery, Hx Pacemaker - Immunizations Immunizations up to date: Yes Hx Diphtheria, Pertussis, Tetanus Vaccination: Yes Review of Systems - Review of Systems Notes: REVIEW OF SYSTEMS: CONSTITUTIONAL : Denies recent illness. Denies recent unintentional weight loss. Denies fever, chills, or sweats. EENT: See HPI CARDIOVASCULAR: Denies chest pain. RESPIRATORY: See HPI GASTROINTESTINAL: See HPI. denies abdominal pain. Denies constipation. GENITOURINARY: Denies difficulty urinating, burning, blood in urine, urgency or frequency. MUSCULOSKELETAL: Denies neck and back pain. Denies joint pain or swelling. SKIN: Denies rash, itchiness, or lesions HEMATOLOGIC : Denies easy bruising or bleeding. LYMPHATIC: Denies swollen, painful, enlarged glands. NEUROLOGICAL: Denies no numbness or tingling denies weakness. Denies headache. Denies altered mental status. Denies alteration in speech. PSYCHIATRIC: Denies stress, anxiety, alteration in sleep patterns, or depression. All other systems reviewed and negative. Physical Exam - Vital signs Vitals: Temp Pulse Resp BP Pulse Ox 97.9 F 92 18 151/76 H 94 03/07/18 03:11 03/07/18 03:11 03/07/18 03:11 03/07/18 03:11 03/07/18 03:11 - Notes Notes: PHYSICAL EXAMINATION: GENERAL: Appears well, healthy, well-nourished, no acute distress. HEAD: Normocephalic, atraumatic. EYES: PERRL, conjunctiva normal, all extraocular movements intact, sclera nonicteric ENT: Erythema and edema noted to bilateral tympanic membranes. moist mucous membranes. NECK: Supple, no noticeable swelling, redness, rash. Normal range of motion. LUNGS: Equal breath sounds bilaterally and clear to auscultation. No wheezes rales or rhonchi. CARDIOVASCULAR: S1-S2, regular rate, regular rhythm. Radial pulses 2+, normal. ABDOMEN: Normoactive bowel sounds. Soft, nontender, no guarding, no rebound tenderness, and no masses palpated. EXTREMITIES: Normal strength and range of motion, no pitting or edema. No cyanosis. NEUROLOGICAL: Moves all extremities upon command. Strength 5/5 in all extremities. PSYCH: Normal mood, normal affect. SKIN: Warm, dry. No rash, lesions, ulcerations noted. Normal skin turgor. Course - Re-evaluation Re-evalutation: 03/07/18 03:50 On physical exam patient is expiratory wheezes throughout her lung delong. She will be ordered a DuoNeb to help with her breathing. Labs will be ordered along with a chest x-ray to rule out pneumonia. She will be placed on a monitoring analyst. I do not suspect she has a pneumothorax, pulmonary embolism, or any life-threatening etiologies at this time. 03/07/18 04:42 Patient's laboratory studies are unremarkable. Her chest x-ray is normal. I assessed her ears and noticed she had erythema to bilateral tympanic membranes. Likely cause of her fever is acute otitis media. I will give her 1 gram of Tylenol. Her lung sounds have improved, but she also continues to have slight expiratory wheezes, another DuoNeb will be ordered. She will be started on amoxicillin. 03/07/18 05:30 Patient states that she feels better after her second breathing treatment. Her lungs are clear throughout. Verbal discharge instructions were given at bedside. She states understanding and will be discharged home. Her vital signs are stable and appears better. - Vital Signs Vital signs: Temp Pulse Resp BP Pulse Ox 97.9 F 92 12 114/71 96 03/07/18 03:11 03/07/18 03:11 03/07/18 05:01 03/07/18 05:00 03/07/18 05:01 - Laboratory Result Diagrams: 03/07/18 03:57 03/07/18 03:57 Laboratory results interpreted by me: 03/07/18 03/07/18 03:57 03:57 WBC 12.0 H Seg Neutrophils % 40.0 L Lymphocytes % 47.4 H Absolute Lymphocytes 5.7 H Chloride 109 H Glucose 119 H AST 37 H Discharge - Discharge Clinical Impression: Cough Acute otitis media Qualifiers: Otitis media type: suppurative Laterality: bilateral Recurrence: not specified as recurrent Spontaneous tympanic membrane rupture: without spontaneous rupture Qualified Code(s): H66.003 - Acute suppurative otitis media without spontaneous rupture of ear drum, bilateral Condition: Stable Disposition: HOME, SELF-CARE Additional Instructions: Otitis Media You have a middle ear infection (otitis media). This is usually a complication of a cold or sore throat. The middle ear cavity becomes filled with infection. Pressure and stretching of the ear drum cause pain. Antibiotics are required. Please take them as prescribed. A follow-up exam may be recommended to make sure the infection has completely cleared. If the ear begins to drain, it means the ear drum has ruptured. This will usually heal spontaneously. However, it means you should keep the ear dry until re-examined by a doctor. Call the physician or return for examination at once if there is severe headache, stiff neck, confusion, increasing fever, or dizziness. You should improve significantly within two days. If you're not better, call the doctor. May take Tylenol 1000 mg and Motrin every 6 hours as needed for the pain and fever. You have also been prescribed Tessalon Perles. Please take them as needed for your cough. Prescriptions: Benzonatate [Tessalon Perles 100 mg Capsule] 100 mg PO Q8HP PRN #40 capsule PRN Reason: Azithromycin [Zithromax 250 mg Tablet] 250 mg PO DAILY #4 tablet Referrals: JULIA ROBISON, [Primary Care Provider] - Follow up as needed
--- NOTE | 2018-03-07 04:22 | RADIOLOGY REPORT (SQ) ---
EXAM DESCRIPTION: XR CHEST 1 VIEW COMPLETED DATE/TME: 03/07/2018 03:34 CLINICAL HISTORY: 52 years Female, cough; congestion; fever COMPARISON: None. NUMBER OF VIEWS/TECHNIQUE: 1/AP FINDINGS: Adequate lung volume, small subsegmental atelectasis or scar of the left midlung field, normal cardiac silhouette, and intact bony thorax. IMPRESSION: No acute cardiopulmonary findings.
[2018-03-07 04:24] LABS: ABSOLUTE BASOPHILS # (AUTO) 0.1 10^3/uL (0.0-0.2); ABSOLUTE EOSINOPHILS # (AUTO) 0.4 10^3/uL (0.0-0.6); ABSOLUTE LYMPHOCYTES (AUTO) 5.7 10^3/uL (0.5-4.7); ABSOLUTE NEUT (AUTO) 4.8 10^3/uL (1.7-8.2); BASOPHILS % (AUTO) 0.7 % (0-2); EOSINOPHILS % (AUTO) 3.3 % (0-6); HEMATOCRIT 39.7 % (36.0-47.0); HEMOGLOBIN 13.7 g/dL (12.0-15.5); LYMPHOCYTES % (AUTO) 47.4 % (13-45); MEAN CORPUSCULAR HEMOGLOBIN 30.5 pg (27.0-33.4); MEAN CORPUSCULAR HGB CONC 34.6 g/dL (32.0-36.0); MEAN CORPUSCULAR VOLUME 88 fl (80-97); MONOCYTES % (AUTO) 8.6 % (3-13); PLATELET COUNT 331 10^3/uL (150-450); RED CELL DISTRIBUTION WIDTH 12.8 % (11.5-14.0); TOTAL CELLS COUNTED % (AUTO) 100 %
[2018-03-07 04:30] LABS: A TYPE INFLUENZA AG NEGATIVE (NEGATIVE); B INFLUENZA AG NEGATIVE (NEGATIVE)
[2018-03-07] MEDS ORDERED: ACETAMINOPHEN 325 MG TABLET PO ONE (04:40)
[2018-03-07 04:42] LABS: ALANINE AMINOTRANSFERASE 43 U/L (9-52); ALBUMIN 3.8 g/dL (3.5-5.0); ALKALINE PHOSPHATASE 108 U/L (38-126); ANION GAP 13 (5-19); ASPARTATE AMINO TRANSFERASE 37 U/L (14-36); BILIRUBIN,DIRECT 0.4 mg/dL (0.0-0.4); BILIRUBIN,TOTAL 0.4 mg/dL (0.2-1.3); BLOOD UREA NITROGEN 8 mg/dL (7-20); CALCIUM 9.5 mg/dL (8.4-10.2); CARBON DIOXIDE 22 mmol/L (22-30); CHLORIDE 109 mmol/L (98-107); GLUCOSE 119 mg/dL (75-110); POTASSIUM 3.9 mmol/L (3.6-5.0); SODIUM 144.1 mmol/L (137-145); TOTAL PROTEIN 6.9 g/dL (6.3-8.2)
[2018-03-07] MEDS ORDERED: DEXAMETHASONE SOD PHOS INJ 10 MG/1 ML VIAL IV ONE (04:57)
[2018-03-07] MEDS ORDERED: AZITHROMYCIN 250 MG TABLET PO ONE (04:58)
[2018-03-07 05:16] VITALS: BP 114/71
== END 2018-03-07 06:20 | disposition home or self-care (01) ==
LOC: ER 02:35
DX: H66.003 Acute suppurative otitis media without spontaneous rupture of ear drum, bilateral (principal); R05 Cough; R06.02 Shortness of breath; R09.81 Nasal congestion; F17.200 Nicotine dependence, unspecified, uncomplicated; I25.10 Atherosclerotic heart disease of native coronary artery without angina pectoris; I10 Essential (primary) hypertension; E11.9 Type 2 diabetes mellitus without complications
CPT/HCPCS: 99406; 94640 ×2; 99284; 96374; 36415; 85025; 80053; 87804; 71045; J1100; J7620

== ENCOUNTER 2019-01-16 14:33 | Emergency (ER) | payer SELFPAY ==
[2019-01-16] MEDS ORDERED: FENTANYL CITRATE INJ/PF 100 MCG/2 ML AMPUL IV ONE (15:36)
[2019-01-16] MEDS ORDERED: ONDANSETRON HCL INJ/PF 4 MG/2 ML SDV IV ONE (15:36)
--- NOTE | 2019-01-16 15:47 | ER Document Report ---
ED GI/ - General Stated Complaint: FLANK PAIN Time Seen by Provider: 01/16/19 15:28 Primary Care Provider: JASMIN TOMAS PA-C [Primary Care Provider] - Follow up as needed Mode of Arrival: Ambulatory Information source: Patient Notes: Patient presents complaining of bilateral flank pain off and on over the past week that worsened over the past 2 days. Patient states sometimes she has right flank pain and then occasionally she will have left flank pain sometimes position can affect her pain. Patient states she will occasionally have abdominal pain. Patient reports nausea and chills. Patient denies any vomiting or fever. Patient reports she has had occasional blood in the urine. TRAVEL OUTSIDE OF THE [place] IN LAST 30 DAYS: No - HPI Patient complains to provider of: Abdominal pain, Flank pain. No: Vaginal bleeding, Vomiting Onset: Last week Timing/Duration: Worse Quality of pain: Sharp Pain Level: 5 Location: Left flank, Right flank Vaginal bleeding (Compared to normal period): None Associated symptoms: Hematuria, Nausea. denies: Diarrhea, Fever, Urinary hesitancy, Urinary frequency, Urinary retention, Urinary urgency, Vomiting Exacerbated by: Denies Relieved by: Denies Similar symptoms previously: No Recently seen / treated by doctor: No - Related Data Allergies/Adverse Reactions: iodine [Iodine] Allergy (Verified 01/16/19 15:30) swollen Past Medical History - General Information source: Patient - Social History Smoking Status: Current Every Day Smoker Smoking Education Provided: Yes Frequency of alcohol use: None Drug Abuse: None Occupation: Self-employed Lives with: Spouse/Significant other Family History: Reviewed & Not Pertinent - Past Medical History Cardiac Medical History: Reports: Hx Coronary Artery Disease, Hx Heart Attack - 2009, Hx Hypercholesterolemia, Hx Hypertension Pulmonary Medical History: Denies: Hx Asthma Neurological Medical History: Denies: Hx Cerebrovascular Accident, Hx Seizures Endocrine Medical History: Reports: Hx Diabetes Mellitus Type 2 Renal/ Medical History: Denies: Hx Peritoneal Dialysis GI Medical History: Denies: Hx Hepatitis, Hx Hiatal Hernia, Hx Ulcer Musculoskeletal Medical History: Reports Hx Musculoskeletal Deformity, Reports Hx Musculoskeletal Trauma Psychiatric Medical History: Reports: Hx Attention Deficit Hyperactivity Disorder, Hx Bipolar Disorder Infectious Medical History: Denies: Hx Hepatitis Past Surgical History: Reports: Hx Cardiac Catheterization - stent x 2, Hx Section, Hx Coronary Stent, Hx Genitourinary Surgery, Hx Tonsillectomy - Immunizations Immunizations up to date: Yes Hx Diphtheria, Pertussis, Tetanus Vaccination: Yes Review of Systems - Review of Systems Constitutional: Chills. denies: Fever EENT: No symptoms reported Cardiovascular: No symptoms reported. denies: Chest pain Respiratory: Cough. denies: Short of breath Gastrointestinal: Abdominal pain, Nausea. denies: Vomiting Genitourinary: Flank pain, Hematuria Female Genitourinary: No symptoms reported Musculoskeletal: Back pain Skin: No symptoms reported Hematologic/Lymphatic: No symptoms reported Neurological/Psychological: No symptoms reported Physical Exam - Vital signs Vitals: Temp Pulse Resp BP Pulse Ox 98.4 F 97 17 184/101 H 96 01/16/19 14:43 01/16/19 14:43 01/16/19 14:43 01/16/19 14:43 01/16/19 14:43 - General General appearance: Appears well, Alert In distress: None - HEENT Head: Normocephalic, Atraumatic Eyes: Normal Conjunctiva: Normal Nasal: Normal Neck: Normal, Supple. No: Lymphadenopathy - Respiratory Respiratory status: No respiratory distress. No: Labored, Tachypnea Chest status: Nontender Breath sounds: Nonproductive cough, Rhonchi Chest palpation: Normal - Cardiovascular Rhythm: Regular Heart sounds: S1 appreciated, S2 appreciated - Abdominal Inspection: Morbidly Obese Distension: No distension Bowel sounds: Normal Tenderness: Tender - Generalized abdominal tenderness Organomegaly: No organomegaly - Back Back: CVA tenderness - Bilateral. No: Vertebra tenderness - Extremities General upper extremity: Normal inspection, Normal strength General lower extremity: Normal inspection, Normal strength - Neurological Neuro grossly intact: Yes Cognition: Normal [place] Coma Scale Eye Opening: Spontaneous [place] Coma Scale Verbal: Oriented [place] Coma Scale Motor: Obeys Commands [place] Coma Scale Total: 15 - Psychological Associated symptoms: Normal affect, Normal mood - Skin Skin Temperature: Warm Skin Moisture: Dry Skin Color: Normal Course - Re-evaluation Re-evalutation: 01/16/19 18:53 Patient without any acute findings on CT scan. Patient with incidental finding of diverticulosis without diverticulitis. No evidence for obstructive uropathy. The patient presents with low back pain without signs of spinal cord compression, cauda equina syndrome, infection, aneurysm, or other serious etiology. The patient is neurologically intact. Given the extremely risk of these diagnoses further testing and evaluation for these possibilities does not appear to be indicated at this time. Patient has been instructed to return if the symptoms worsen or change in any way. - Vital Signs Vital signs: Temp Pulse Resp BP Pulse Ox 98.0 F 64 16 149/86 H 97 01/16/19 19:01 01/16/19 19:01 01/16/19 19:01 01/16/19 19:01 01/16/19 19:01 - Laboratory Result Diagrams: 01/16/19 16:15 01/16/19 16:15 Laboratory results interpreted by me: 01/16/19 01/16/19 01/16/19 16:15 16:15 16:15 WBC 13.3 H Absolute Lymphs (auto) 5.0 H Glucose 212 H Alkaline Phosphatase 155 H Urine Protein 30 H Urine Glucose (UA) >=500 H Urine Ketones TRACE H Labs- Entire Visit 01/16/19 01/16/19 01/16/19 16:15 16:15 16:15 WBC 13.3 H RBC 5.01 Hgb 15.2 Hct 43.9 MCV 88 MCH 30.3 MCHC 34.5 RDW 12.8 Plt Count 359 Lymph % (Auto) 37.9 [place] % (Auto) 5.1 Eos % (Auto) 1.8 Baso % (Auto) 0.5 Absolute Neuts (auto) 7.3 Absolute Lymphs (auto) 5.0 H Absolute Monos (auto) 0.7 Absolute Eos (auto) 0.2 Absolute Basos (auto) 0.1 Seg Neutrophils % 54.7 Sodium 137.9 Potassium 4.0 Chloride 103 Carbon Dioxide 27 Anion Gap 8 BUN 11 Creatinine 0.58 Est GFR ( Amer) > 60 Est GFR (MDRD) Non-Af > 60 Glucose 212 H Calcium 9.7 Total Bilirubin 0.5 Direct Bilirubin 0.2 Neonat Total Bilirubin Not Reportable Neonat Direct Bilirubin Not Reportable Neonat Indirect Bili Not Reportable AST 36 ALT 31 Alkaline Phosphatase 155 H Total Protein 7.3 Albumin 4.3 Lipase 47.3 Serum HCG, Qual NEGATIVE Urine Color Urine Appearance Urine pH Ur Specific [place] Urine Protein Urine Glucose (UA) Urine Ketones Urine Blood Urine Nitrite Urine Bilirubin Urine Urobilinogen Ur Leukocyte Esterase Urine WBC (Auto) Urine RBC (Auto) U Hyaline Cast (Auto) Squamous Epi Cells Auto Urine Mucus (Auto) Urine Ascorbic Acid 01/16/19 16:15 WBC RBC Hgb Hct MCV MCH MCHC RDW Plt Count Lymph % (Auto) [place] % (Auto) Eos % (Auto) Baso % (Auto) Absolute Neuts (auto) Absolute Lymphs (auto) Absolute Monos (auto) Absolute Eos (auto) Absolute Basos (auto) Seg Neutrophils % Sodium Potassium Chloride Carbon Dioxide Anion Gap BUN Creatinine Est GFR ( Amer) Est GFR (MDRD) Non-Af Glucose Calcium Total Bilirubin Direct Bilirubin Neonat Total Bilirubin Neonat Direct Bilirubin Neonat Indirect Bili AST ALT Alkaline Phosphatase Total Protein Albumin Lipase Serum HCG, Qual Urine Color YELLOW Urine Appearance SLIGHTLY-CLOUDY Urine pH 5.0 Ur Specific [place] 1.023 Urine Protein 30 H Urine Glucose (UA) >=500 H Urine Ketones TRACE H Urine Blood NEGATIVE Urine Nitrite NEGATIVE Urine Bilirubin NEGATIVE Urine Urobilinogen NEGATIVE Ur Leukocyte Esterase NEGATIVE Urine WBC (Auto) 1 Urine RBC (Auto) 1 U Hyaline Cast (Auto) 1 Squamous Epi Cells Auto 2 Urine Mucus (Auto) OCC Urine Ascorbic Acid NEGATIVE - Diagnostic Test Radiology reviewed: Reports reviewed Discharge - Discharge Clinical Impression: Low back pain Qualifiers: Chronicity: unspecified Back pain laterality: bilateral Sciatica presence: without sciatica Qualified Code(s): M54.5 - Low back pain Diabetes Qualifiers: Diabetes mellitus type: other specified (including LEXY) Diabetes mellitus long-term insulin use: without long-term use Diabetes mellitus complication status: with hyperglycemia Qualified Code(s): E13.65 - Other specified diabetes mellitus with hyperglycemia Abdominal pain Qualifiers: Abdominal location: unspecified location Qualified Code(s): R10.9 - Unspecified abdominal pain Condition: Stable Disposition: HOME, SELF-CARE Instructions: Abdominal Pain ([facility]), Flank Pain ([facility]), Low Back Pain ([facility]) Additional Instructions: Return immediately for any new or worsening symptoms Followup with your primary care provider, call tomorrow to make a followup appointment Prescriptions: Cyclobenzaprine HCl [Flexeril 10 Mg Tablet] 10 mg PO TID #15 tablet Glipizide [Glipizide Xl] 2.5 mg PO DAILY #30 tab.er.24 Lidocaine [Lidoderm 5% (700 mg) Transdermal Patch] 1 patch TP DAILY PRN #10 adh..patch PRN Reason: Forms: Smoking Cessation Education Referrals: JASMIN TOMAS PA-C [Primary Care Provider] - Follow up as needed
[2019-01-16] MEDS ORDERED: AMLODIPINE BESYLATE 10 MG TABLET PO ONE (15:50)
[2019-01-16] MEDS ORDERED: METOPROLOL TARTRATE 100 MG TABLET PO ONE (15:51)
--- NOTE | 2019-01-16 16:12 | RADIOLOGY REPORT (SQ) ---
EXAM DESCRIPTION: CHEST 2 VIEWS COMPLETED DATE/TIME: 01/16/2019 3:59 pm REASON FOR STUDY: cough COMPARISON: 03/07/2018. EXAM PARAMETERS: NUMBER OF VIEWS: two views TECHNIQUE: Digital Frontal and Lateral radiographic views of the chest acquired. RADIATION DOSE: NA LIMITATIONS: none FINDINGS: LUNGS AND PLEURA: No opacities, masses or pneumothorax. No pleural effusion. MEDIASTINUM AND HILAR STRUCTURES: No masses or contour abnormalities. HEART AND VASCULAR STRUCTURES: Heart normal size. No evidence for failure. BONES: No acute findings. HARDWARE: None in the chest. OTHER: No other significant finding. IMPRESSION: NO ACUTE RADIOGRAPHIC FINDING IN THE CHEST. TECHNICAL DOCUMENTATION: JOB ID: [id number] [employer]- All Rights Reserved Reading location - IP/workstation name: [email or web address]
[2019-01-16 16:43] LABS: ABSOLUTE BASOPHILS # (AUTO) 0.1 10^3/uL (0.0-0.2); ABSOLUTE EOSINOPHILS # (AUTO) 0.2 10^3/uL (0.0-0.6); ABSOLUTE MONOCYTES (AUTO) 0.7 10^3/uL (0.1-1.4); ABSOLUTE NEUT (AUTO) 7.3 10^3/uL (1.7-8.2); APPEARANCE,URINE SLIGHTLY-CLOUDY; BASOPHILS % (AUTO) 0.5 % (0-2); BILIRUBIN,URINE NEGATIVE (NEGATIVE); COLOR,URINE YELLOW; EOSINOPHILS % (AUTO) 1.8 % (0-6); GLUCOSE, URINE >=500 mg/dL (NEGATIVE); HEMATOCRIT 43.9 % (36.0-47.0); HEMOGLOBIN 15.2 g/dL (12.0-15.5); KETONES,URINE TRACE mg/dL (NEGATIVE); LEUKOCYTE ESTERASE,URINE NEGATIVE (NEGATIVE); LYMPHOCYTES % (AUTO) 37.9 % (13-45); MEAN CORPUSCULAR HEMOGLOBIN 30.3 pg (27.0-33.4); MEAN CORPUSCULAR HGB CONC 34.5 g/dL (32.0-36.0); MEAN CORPUSCULAR VOLUME 88 fl (80-97); MONOCYTES % (AUTO) 5.1 % (3-13); NITRITE,URINE NEGATIVE (NEGATIVE); PLATELET COUNT 359 10^3/uL (150-450); PROTEIN,URINE 30 mg/dL (NEGATIVE); RED BLOOD COUNT 5.01 10^6/uL (3.72-5.28); RED CELL DISTRIBUTION WIDTH 12.8 % (11.5-14.0); SEGMENTED NEUTROPHILS % (AUTO) 54.7 % (42-78); TOTAL CELLS COUNTED % (AUTO) 100 %; URINE SPECIFIC GRAVITY 1.023; UROBILINOGEN,URINE NEGATIVE mg/dL (<2.0); WHITE BLOOD COUNT 13.3 10^3/uL (4.0-10.5)
[2019-01-16 17:03] LABS: ALBUMIN 4.3 g/dL (3.5-5.0); ALKALINE PHOSPHATASE 155 U/L (38-126); ANION GAP 8 (5-19); ASPARTATE AMINO TRANSFERASE 36 U/L (14-36); BILIRUBIN,DIRECT 0.2 mg/dL (0.0-0.4); BILIRUBIN,TOTAL 0.5 mg/dL (0.2-1.3); BLOOD UREA NITROGEN 11 mg/dL (7-20); CALCIUM 9.7 mg/dL (8.4-10.2); CARBON DIOXIDE 27 mmol/L (22-30); CHLORIDE 103 mmol/L (98-107); GLUCOSE 212 mg/dL (75-110); TOTAL PROTEIN 7.3 g/dL (6.3-8.2)
--- NOTE | 2019-01-16 18:14 | RADIOLOGY REPORT (SQ) ---
EXAM DESCRIPTION: CT ABD/PELVIS NO ORAL OR IV COMPLETED DATE/TIME: 01/16/2019 5:42 pm REASON FOR STUDY: bilat flank, generalized abd COMPARISON: None. TECHNIQUE: CT scan of the abdomen and pelvis performed without intravenous or oral contrast. Images reviewed with lung, soft tissue, and bone windows. Reconstructed coronal and sagittal MPR images revi ewed. All images stored on PACS. All CT scanners at this facility use dose modulation, iterative reconstruction, and/or weight based d osing when appropriate to reduce radiation dose to as low as reasonably achievable (ALARA). [facility]: Dose Right [facility]: CareDose [facility]: Dose Right [facility]: Teradose 4D [facility]: Smart LaserGen RADIATION DOSE: CT Rad equipment meets quality standard of care and radiation dose reduction techniq ues were employed. CTDIvol: 18.0 mGy. DLP: 946 mGy-cm.mGy. LIMITATIONS: None. FINDINGS: LOWER CHEST: No significant findings. No nodules or infiltrates. NON-CONTRASTED LIVER, SPLEEN, ADRENALS: Evaluation limited by lack of IV contrast. No identified sign ificant masses. PANCREAS: No masses. No peripancreatic inflammatory changes. GALLBLADDER: No identified stones by CT criteria. No inflammatory changes to suggest cholecystitis. RIGHT KIDNEY AND URETER: No suspicious masses. Assessment limited by lack of IV contrast. No signif icant calcifications. No hydronephrosis or hydroureter. LEFT KIDNEY AND URETER: No suspicious masses. Assessment limited by lack of IV contrast. No signifi cant calcifications. No hydronephrosis or hydroureter. AORTA AND RETROPERITONEUM: No aneurysm. No retroperitoneal masses or adenopathy. BOWEL AND PERITONEAL CAVITY: Diverticulosis. No evidence for diverticulitis. APPENDIX: Normal. PELVIS, BLADDER, AND ABDOMINAL WALL:No abnormal masses. No free fluid. Bladder normal. BONES: No significant findings. OTHER: No other significant finding. IMPRESSION: Diverticulosis without diverticulitis. No acute findings. COMMENT: Quality ID # [id number]: Final reports with documentation of one or more dose reduction techniques (e.g., Automated exposure control, adjustment of the mA and/or kV according to patient size, use of iterative reconstruction technique) TECHNICAL DOCUMENTATION: JOB ID: [id number] [employer]- All Rights Reserved Reading location - IP/workstation name: [email or web address]
[2019-01-16 19:01] VITALS: BP 149/86
== END 2019-01-16 19:09 | disposition home or self-care (01) ==
LOC: ER 14:33
DX: M54.5 Low back pain (principal); E13.65 Other specified diabetes mellitus with hyperglycemia; R10.9 Unspecified abdominal pain; R11.0 Nausea; R31.9 Hematuria, unspecified; F17.200 Nicotine dependence, unspecified, uncomplicated; I25.10 Atherosclerotic heart disease of native coronary artery without angina pectoris; I25.2 Old myocardial infarction; I10 Essential (primary) hypertension
CPT/HCPCS: 36415; 83690; 84703; 85025; 80053; 81001; 71046; 74176; J3010; J2405; 96374; 96375; 99284

== ENCOUNTER → 2019-05-19 | Outpatient (CLI) | payer BC ==
--- NOTE | 2019-05-20 20:06 | WOMENS IMAGING REPORT ---
EXAM DESCRIPTION: BILAT SCREENING MAMMO W/CAD COMPLETED DATE/TIME: 05/19/2019 2:29 pm REASON FOR STUDY: Z12.31 SCREENING MAMMO Z12.31 ENCNTR SCREEN MAMMOGRAM FOR MALIGNANT NEOPLASM OF B RE COMPARISON: None. EXAM PARAMETERS: Standard craniocaudal and mediolateral oblique views of each breast recorded using digital acquisition. Read with the assistance of CAD. .[facility] - [employer] Performance Analyst Version 9.2 LIMITATIONS: None. FINDINGS: No suspicious masses, suspicious calcifications or architectural distortion. No areas of c oncern. IMPRESSION: Negative MAMMOGRAM. BIRADS 1 BREAST DENSITY: b. There are scattered areas of fibroglandular density. BIRAD: ASSESSMENT: 1 NEGATIVE RECOMMENDATION: ROUTINE SCREENING COMMENT: The patient has been notified of the results by letter per MQSA requirements. Additional no tification policies are in place for contacting patient with suspicious or incomplete findings. Quality ID #[id number]: The [employer] recommends an annual screening mammogram for women aged 40 years or over. This facility utilizes a reminder system to ensure that all patients receive reminder letters, and/or direct phone calls for appointments. This includes reminders for routine scr eening mammograms, diagnostic mammograms, or other Breast Imaging Interventions when appropriate. Th is patient will be placed in the appropriate reminder system. TECHNICAL DOCUMENTATION: FINDING NUMBER: (1) ASSESSMENT: (1) JOB ID: [id number] [employer]- All Rights Reserved Reading location - IP/workstation name: [email or web address]
== END ==
LOC: WI 14:50
PROVIDERS: ATTEND Physician Assistant
DX: Z12.31 Encounter for screening mammogram for malignant neoplasm of breast (principal)
CPT/HCPCS: 77067

== ENCOUNTER → 2019-05-24 | Outpatient (CLI) | payer BC | LOC: SP 14:50 | PROVIDERS: ATTEND Surgery | DX: I73.9 Peripheral vascular disease, unspecified (principal); M79.606 Pain in leg, unspecified; R09.89 Other specified symptoms and signs involving the circulatory and respiratory systems | CPT/HCPCS: 93925 ==